=== PATIENT | female | born 1975 ===

== ENCOUNTER 2017-12-02 16:55 | Emergency (ER) | payer OTHER, SELFPAY ==
[2017-12-02 17:23] VITALS: BP 132/77; PULSE 88; RESP 20; TEMP 98.6; O2SAT 97; BMI 56.0
[2017-12-02] MEDS ORDERED: Dexamethasone 4 mg/1 ml IM STA (17:39)
--- NOTE | 2017-12-02 17:39 | C.PDOC ---
History Of Present Illness <Kaity Cochran - Last Filed: 12/02/17 17:50> <Kang Bocanegra DO - Last Filed: 12/02/17 18:33> HPI: 42 year old female with past medical history of HTN who presents to [facility] for an allergic reaction. Patient states she took 2 new medications today Diclofenac and Promethazine at 2:30pm. Then around 4:30pm she woke up from a nap and she had itching all over her body, swelling in her hands and she felt like she couldn't breathe so she decided to come to the ER. She states this once happened 2 years ago but does not recall what the medication was. Currently she denies shortness of breath, itching, nausea, vomiting or fever. PMD: Dr. Walls Past Medical History: HTN Past Surgical History: Medications: Lisinopril 5mg daily (Kaity Cochran) <Kaity Cochran - Last Filed: 12/02/17 17:50> <Kang Bocanegra DO - Last Filed: 12/02/17 18:33> Chief Complaint (Nursing): Allergic Reaction Past Medical History - Medical History PMH: HTN Family History: States: No Known Family Hx - Social History Hx Tobacco Use: No Hx Alcohol Use: No Hx Substance Use: No - Immunization History Hx Tetanus Toxoid Vaccination: Yes Hx Influenza Vaccination: No Hx Pneumococcal Vaccination: No <Kaity Cochran - Last Filed: 12/02/17 17:50> Vital Signs: Last Vital Signs Temp 98.6 F 12/02/17 17:23 Pulse 88 12/02/17 17:23 Resp 20 12/02/17 17:23 BP 132/77 12/02/17 17:23 Pulse Ox 97 12/02/17 17:59 Review Of Systems Constitutional: Negative for: Fever, Chills Cardiovascular: Negative for: Chest Pain Respiratory: Negative for: Cough, Shortness of Breath, Wheezing Gastrointestinal: Negative for: Nausea, Vomiting Skin: Positive for: Rash <Kaity Cochran - Last Filed: 12/02/17 17:50> Physical Exam - Physical Exam Appears: Non-toxic, No Acute Distress Skin: Rash (petechiae seen on the dorsal trunk, chest, and face) Head: Atraumatic, Normacephalic Eye(s): bilateral: Normal Inspection, PERRL, EOMI Oral Mucosa: Moist Cardiovascular: Rhythm Regular Respiratory: Normal Breath Sounds, No Decreased Breath Sounds, No Accessory Muscle Use, No Rales, No Rhonchi, No Stridor, No Wheezing Gastrointestinal/Abdominal: Normal Exam, Bowel Sounds (normal), Soft, No Tenderness Extremity: Swelling (bilateral hand swelling) Neurological/Psych: Oriented x3, Normal Speech, Normal Cognition <Kaity Cochran - Last Filed: 12/02/17 17:50> ED Course And Treatment O2 Sat by Pulse Oximetry: 97 <Kaity Cochran - Last Filed: 12/02/17 17:50> Medical Decision Making <Kaity Cochran - Last Filed: 12/02/17 17:50> <Kang Bocanegra DO - Last Filed: 12/02/17 18:33> Medical Decision Making: Allergic reaction secondary to one of the new medications Diclofenac and/or Promethazine - Decadron 10mg IM once (Kaity Cochran) Disposition Discussed With Dr.: Kang Bocanegra DO Doctor Will See Patient In The: ED - Disposition Disposition Time: 17:58 <Kaity Cochran - Last Filed: 12/02/17 17:50> - Disposition Disposition Time: 17:40 <Kang Bocanegra DO - Last Filed: 12/02/17 18:33> - Disposition Referrals: Sara Virgen, [Non-Staff] - Disposition: HOME/ ROUTINE Condition: GOOD Additional Instructions: Thank you for letting us take care of you today. The emergency medical care you received today was directed at your acute symptoms. If you were prescribed any medication, please fill it and take as directed. It may take several days for your symptoms to resolve. Return to the Emergency Department if your symptoms worsen, do not improve, or if you have any other problems. Please contact your doctor or call one of the physicians/clinics you have been referred to that are listed on the Patient Visit Information form that is included in your discharge packet. Bring any paperwork you were given at discharge with you along with any medications you are taking to your follow up visit. Our treatment cannot replace ongoing medical care by a primary care provider (PCP) outside of the emergency department. Thank you for allowing the [facility] team to be part of your care today. STOP TAKING THE NEW MEDICATION YOU STARTED TODAY. Follow up with your primary care doctor in 1-2 days for re-evaluation and further management. Prescriptions: predniSONE [Prednisone] 40 mg PO DAILY #10 tab Instructions: Drug Allergy Forms: [employer] (Ivorian) - Clinical Impression Clinical Impression: Allergy - PA / [employer] REP / Resident Statement MD/ has reviewed & agrees with the documentation as recorded. /DO has examined the patient and agrees with the treatment plan. <Kaity Cochran - Last Filed: 12/02/17 17:50>
== END 2017-12-02 18:01 | disposition home or self-care (01) ==
LOC: C.ER 16:55
DX: M79.89 Other specified soft tissue disorders (principal); T50.995A Adverse effect of other drugs, medicaments and biological substances, initial encounter; I10 Essential (primary) hypertension
CPT/HCPCS: 96372; 99284; J1100

== ENCOUNTER 2017-12-10 17:06 | Emergency (ER) | payer OTHER ==
[2017-12-10 17:12] VITALS: BMI 57.4
[2017-12-10] MEDS ORDERED: Sodium Chloride 0.9% 1,000 ML IV STA (17:28)
[2017-12-10] MEDS ORDERED: DiphenhydrAMINE 50 mg/ml Inj IVP STA (17:28)
[2017-12-10] MEDS ORDERED: DiphenhydrAMINE 50 mg/ml Inj ONE (17:31)
[2017-12-10] MEDS ORDERED: Sodium Chloride 0.9% 1,000 ML ONE (17:31)
--- NOTE | 2017-12-10 18:15 | C.PDOC ---
History Of Present Illness <Chyna Shetty - Last Filed: 12/10/17 18:54> <Ally Howard - Last Filed: 12/10/17 18:59> <Ainsley Aponte - Last Filed: 12/10/17 20:34> 42 y/o female presents to ED with complaints of allergic reaction developed 30 minutes after taking Voltaren for back pain today. Patient states she was seen 1 week ago for similar symptoms but not as severe, was told to stop cold medication for possible allergic reaction. Patient states she stopped cold medication and today developed same symptoms but worse with associated tongue swelling and voice change which prompted visit to ED. Patient denies fever, chills, sob, wheezing, chest pain or any other complaints at this time. (Ally Howard) <Chyna Shetty - Last Filed: 12/10/17 18:54> History Per: Patient History/Exam Limitations: no limitations Onset/Duration Of Symptoms: Hrs Current Symptoms Are (Timing): Still Present Possible Cause: Medication Associated Symptoms: Skin Rash, Swelling <Ally Howard - Last Filed: 12/10/17 18:59> <Ainsley Aponte - Last Filed: 12/10/17 20:34> Time Seen by Provider: 12/10/17 17:18 Chief Complaint (Nursing): Allergic Reaction Past Medical History Reviewed: Historical Data, Nursing Documentation, Vital Signs - Medical History PMH: HTN Surgical History: No Surg Hx Family History: States: No Known Family Hx - Social History Hx Tobacco Use: No Hx Alcohol Use: No Hx Substance Use: No - Immunization History Hx Tetanus Toxoid Vaccination: Yes Hx Influenza Vaccination: No Hx Pneumococcal Vaccination: No <Ally Howard - Last Filed: 12/10/17 18:59> Vital Signs: Last Vital Signs Temp 98.3 F 12/10/17 17:12 Pulse 110 H 12/10/17 17:12 Resp 20 12/10/17 17:12 BP 137/85 12/10/17 17:12 Pulse Ox 96 12/10/17 19:07 Review Of Systems Constitutional: Negative for: Fever, Chills Cardiovascular: Negative for: Chest Pain Respiratory: Negative for: Shortness of Breath Gastrointestinal: Negative for: Nausea, Vomiting Skin: Positive for: Rash <Ally Howard - Last Filed: 12/10/17 18:59> Physical Exam - Physical Exam Appears: Non-toxic, No Acute Distress Skin: Warm, Dry, Rash (Urticaria erythematous rash to face and chest. ) Head: Atraumatic, Normacephalic Eye(s): bilateral: Normal Inspection Oral Mucosa: Moist Tongue: Normal Appearing, No Swelling Lips: Normal Appearing, No Swelling Throat: Normal, No Erythema, No Exudate, No Drooling Neck: Normal ROM, Supple Cardiovascular: Rhythm Regular Respiratory: Normal Breath Sounds, No Rales, No Rhonchi, No Wheezing Gastrointestinal/Abdominal: Soft, No Tenderness, No Guarding, No Rebound Extremity: Normal ROM, Capillary Refill (<2 seconds) Neurological/Psych: Oriented x3, Normal Speech <Ally Howard - Last Filed: 12/10/17 18:59> ED Course And Treatment O2 Sat by Pulse Oximetry: 96 (RA) Pulse Ox Interpretation: Normal Progress Note: IVF, Benadryl and Solu-Medrol IV administered. On re-evaluation patient feels better, but still has swollen lips and mouth. Patient is being observed in ED. Case was signed out to at 7 pm. <Ally Howard - Last Filed: 12/10/17 18:59> - Laboratory Results Result Diagrams: 12/10/17 19:12 12/10/17 19:12 <Ainsley Aponte - Last Filed: 12/10/17 20:34> Supervising Attending Note - Supervising Attending Note The Documented history was done by the: Physician Sugar Coating Hand The documented physical exam was done by the: Physician Sugar Coating Hand The documented procedures were done by the: Physician Sugar Coating Hand EM CAVEAT: Language Barrier - Attestation: I have personally seen and examined this patient.: Yes I have fully participated in the care of the patient.: Yes I have reviewed all pertinent clinical information: Yes <Chyna Shetty - Last Filed: 12/10/17 18:54> <Ally Howard - Last Filed: 12/10/17 18:59> <Ainsley Aponte - Last Filed: 12/10/17 20:34> - Notes: Notes:: WORSENING LIP SWELLING, REDNESS X 1 WEEK. SEEN LAST WEEK FOR SAME, ADVISED TO DC COUGH MEDICINE. CONTINUED ON CURRENT HTN MED AND DICLOFENAC, FELT PERSIST B/ L FEET ITCH BUT NOW W NEW ONSET REDNESS, LIP SWELLING. NO WHEEZE, DENIES HO ASTHMA. EXAM ABOVE (Chyna Shetty) Progress - Critical Care Citical Care: Excluding Proc Time Critical Care Time: 90 minutes <Chyna Shetty - Last Filed: 12/10/17 18:54> <Ally Howard - Last Filed: 12/10/17 18:59> <Ainsley Aponte - Last Filed: 12/10/17 20:34> - Re-Evaluation Re-evaluation Note: 12/10/17 18:53 VIA TRANS PT NOW STATES TAKE ENALAPRIL. PER TRIAGE, PT DID NOT REPORT THIS MEDICATION DURING INITIAL EVAL. SP SOLUMEDROL, BENADRYL, IVF X 1 HR. HIVES, ITCH RESOLVED. STILL CO PERSIST LIP SWELLING, "FUNNY FEELING" WHEN SWALLOWING. NARD VSS. TONGUE NO ANGIOEDEMA; LIP ANGIOEDEMA; NO DROOL, STRIDOR; NO GROSS VOCAL ABN. (Chyna Shetty) Disposition <Chyna Shetty - Last Filed: 12/10/17 18:54> - Disposition Disposition Time: 19:07 <Ally Howard - Last Filed: 12/10/17 18:59> <Ainsley Aponte - Last Filed: 12/10/17 20:34> - Disposition Condition: FAIR Forms: [employer] (Estonian) - Clinical Impression Clinical Impression: Allergy <Chyna Shetty - Last Filed: 12/10/17 18:54> - PA / PSYCHIATRIC AIDE INSTRUCTOR / Resident Statement MD/DO has reviewed & agrees with the documentation as recorded. - Scribe Statement The provider has reviewed the documentation as recorded by the Scribe <Ally Howard - Last Filed: 12/10/17 18:59> <Ainsley Aponte - Last Filed: 12/10/17 20:34> - Scribe Statement Anay Menchaca All medical record entries made by the Scribe were at my direction and personally dictated by me. I have reviewed the chart and agree that the record accurately reflects my personal performance of the history, physical exam, medical decision making, and the department course for this patient. I have also personally directed, reviewed, and agree with the discharge instructions and disposition. (Ally Howard) Addendum <Ally Howard - Last Filed: 12/10/17 18:59> <Ainsley Aponte - Last Filed: 12/10/17 20:34> Addendum: 12/10/17 20:30 Patient resting comfortably, states she feels much better and would like to be discharged home. On exam, she has trace lipo swelling, no tongue swelling, no drooling/stridor, lungs are CTA B/L without wheezing or accessory muscle use. She admits to being on DELON inhibitor, however states symptoms started after starting Diclofenac on 12/01. She was seen previously for similar symptoms in our ER after initially starting med. For the last 2-3 days she has felt itchy, and then today after med her lips became swollen. Patient significantly improved, will discharge home with prednisone and benadryl. She was instructed to stop taking medication, and to follow up with PMD Dr. Walls in 1-2 days. She understands she should return to ED if symptoms return/worsen. (Ainsley Aponte)
[2017-12-10 19:20] LABS: BASO % 0.3 % (0.0-2.0); EOS # 0.1 K/uL (0.0-0.7); EOS % 1.1 % (0.0-4.0); HEMOGLOBIN 13.3 g/dL (11.0-16.0); LYMPH # 5.2 K/uL (1.0-4.3); LYMPH % 40.5 % (20.0-40.0); MEAN CORPUSCULAR HEMOGLOBIN 24.4 pg (27.0-31.0); MEAN PLATELET VOLUME 8.7 fL (7.2-11.7); MONO # 0.6 K/uL (0.0-0.8); MONO % 4.7 % (0.0-10.0); NEUT # 6.8 K/uL (1.8-7.0); NEUT % 53.4 % (50.0-75.0); RBC 5.45 Mil/uL (3.80-5.20); RED CELL DISTRIBUTION WIDTH 16.7 % (11.5-14.5); WHITE BLOOD COUNT 12.8 K/uL (4.8-10.8)
[2017-12-10 19:22] LABS: MEAN CELL VOLUME 76.4 fL (81.0-99.0)
[2017-12-10 19:27] LABS: ALB/GLOB RATIO 1.1 (1.0-2.1); ALBUMIN 3.9 g/dL (3.5-5.0); ALT/SGPT 52 U/L (9-52); AST/SGOT 39 U/L (14-36); BLOOD UREA NITROGEN 21 mg/dL (7-17); CALCIUM 9.7 mg/dl (8.6-10.4); GFR AFRICAN-AMERICAN > 60; GFR NON-AFRICAN AMERICAN > 60
[2017-12-10 20:41] VITALS: BP 126/86; PULSE 89; RESP 16; TEMP 98; O2SAT 98
== END 2017-12-10 20:41 | disposition home or self-care (01) ==
LOC: C.ER 17:06
DX: T78.49XA Other allergy, initial encounter (principal); X58.XXXA Exposure to other specified factors, initial encounter
CPT/HCPCS: 80053; 85025; 96374; 96375; 99284; J1200; J2930; J7040

== ENCOUNTER 2018-12-15 16:12 | Outpatient (CLI) | payer SELFPAY | END 2018-12-15 16:13 | disposition home or self-care (01) | LOC: C.CTH 16:12 | DX: R10.2 Pelvic and perineal pain (principal) ==

== ENCOUNTER 2019-01-17 16:07 | Emergency (ER) | payer OTHER, SELFPAY ==
[2019-01-17 16:07] VITALS: BMI 57.4
[2019-01-17 16:17] VITALS: TEMP 97.9
[2019-01-17] MEDS ORDERED: Aspirin 325 mg EC Tablets PO STA (17:36)
--- NOTE | 2019-01-17 17:36 | C.PDOC ---
History Of Present Illness NEW ONSET CP X 3 EPISODES, LAST @ 1200. FIRST 2 WKS AGO, RESOLVED. RECUR 4/5 THEN RESOLVED. RECUR TODAY @ 1200 ONSET DURING ROUTINE ACTIVITY. L SIDED, RADIATION L ARM. +SOB, DIZZY. SIM TO PRIOR EPISODES. CURRENTLY LUE DISCOMFORT IMPROVED FROM INITIAL. HO DM, HTN. DENIES SMOKING. PS COMPLIANT W MEDS BUT DID NOT TAKE DOSE TODAY EXAM NONTOXIC OBESE LUNGS CTA BL NO W/R/R CV RRR HR 65 REMAINDER NEG Time Seen by Provider: 01/17/19 16:53 Chief Complaint (Nursing): Chest Pain History Per: Patient History/Exam Limitations: no limitations Onset/Duration Of Symptoms: Days Current Symptoms Are (Timing): Still Present Severity: Moderate Past Medical History Reviewed: Historical Data, Nursing Documentation, Vital Signs Vital Signs: Last Vital Signs Temp 97.9 F 01/17/19 16:13 Pulse 76 01/17/19 16:13 Resp 18 01/17/19 16:13 BP 197/94 H 01/17/19 16:13 Pulse Ox 99 01/17/19 16:13 - Medical History PMH: HTN Surgical History: Family History: States: No Known Family Hx - Social History Hx Tobacco Use: No Hx Alcohol Use: No Hx Substance Use: No - Immunization History Hx Tetanus Toxoid Vaccination: Yes Hx Influenza Vaccination: Yes Hx Pneumococcal Vaccination: No Review Of Systems Except As Marked, All Systems Reviewed And Found Negative. Constitutional: Negative for: Fever, Chills Cardiovascular: Positive for: Chest Pain Respiratory: Positive for: Shortness of Breath Neurological: Positive for: Dizziness Physical Exam - Physical Exam Appears: Non-toxic, Other (obese) Skin: Normal Color, Warm, Dry Head: Atraumatic, Normacephalic Eye(s): bilateral: Normal Inspection Neck: Supple Chest: Symmetrical Cardiovascular: Rhythm Regular (RRR HR 65) Respiratory: Normal Breath Sounds, No Rales, No Rhonchi, No Wheezing Gastrointestinal/Abdominal: Normal Exam, Soft, No Tenderness, No Guarding, No Rebound Neurological/Psych: Oriented x3, Normal Speech ED Course And Treatment - Laboratory Results Result Diagrams: 01/17/19 17:49 01/17/19 17:49 ECG: Interpreted By Wv ECG Rhythm: Sinus Rhythm ECG Interpretation: Normal Rate From EC O2 Sat by Pulse Oximetry: 99 (RA) Pulse Ox Interpretation: Normal - Radiology CXR: Interpreted by Me, Viewed By Me CXR Interpretation: Yes: No Acute Disease Progress - Re-Evaluation Re-evaluation Note: 01/17/19 17:43 PS PREV TOLERATING ASPIRIN WO DIFF. PT AND FAMILY ADVISED HAS MULTIPLE RISK FACTORS FOR CARDIAC DISEASE, NO PRIOR CARDIAC EVALUATION OR TESTING. FURTHER MANAGEMENT WILL REQUIRE ADMISSION. AGREE W PLAN 01/17/19 18:31 D/W DR MOORE WILL ADMIT 01/17/19 18:37 PT NOW STATES DOES NOT WANT ADMISSION. The patient declines admission to the hospital and wishes to leave the Emergency Department. This action is against my medical advice. This decision was made with informed refusal. The patient was told that admission to the hospital is necessary. Explanation of the reasons why were discussed. The risks of leaving were explained to the patient and include, but are not limited to, worsening of known or currently unknown conditions, permanent disability and from undiagnosed or untreated conditions. The patient has the capacity to make this informed decision and understands my explanation of the current medical problem and risks of leaving. The patient voluntarily accepts these risks and signed an AMA form documenting our conversation. The patient was given the opportunity to ask questions and reconsider. The patient was encouraged to return to the Emergency Department at any time for further care. - Data Reviewed Data Reviewed: Lab, Diagnostic imaging, EKG, Old records Medical Decision Making Medical Decision Making: Plan: --Labs --EKG --CXR --Aspirin PO --Nitro PO Disposition Counseled Patient/Family Regarding: Studies Performed, Diagnosis, Need For Followup - Disposition Referrals: YOUR,PMD [Other] Disposition: AGAINST MEDICAL ADVICE Disposition Time: 18:31 Condition: STABLE Additional Instructions: USTED GRANT SIDO INFORMADO DE LA NECESIDAD DE PRUEBAS ADICIONALES DE CARDENAS CONDICIN MDICA DE EMERGENCIA. DAVEY SIDO ADVERTIDOS LOS RIESGOS DE ABANDONAR, INCLUIDAS LA DISCAPACIDAD, EL DETERIORO Y LA MUERTE. USTED GRANT INDICADO LA COMPRENSIN VERBAL Y DESEA PROCEDER A ABANDONARSE CONTRA EL ASESORAMIENTO MDICO. SIGUE CON TU PMD CUANTO ANTES. REGRESE SI EMPEORAN LOS SNTOMAS. Instructions: Chest Pain (DC), Leaving Against Medical Advice Forms: [employer] (Turkish) Print Language: SLOVENIAN - POA Present On Arrival: None - Clinical Impression Clinical Impression: Chest pain - Scribe Statement The provider has reviewed the documentation as recorded by the Scribe Jeremi Solis Provider Attestation: All medical record entries made by the Scribe were at my direction and personally dictated by me. I have reviewed the chart and agree that the record accurately reflects my personal performance of the history, physical exam, m edical decision making, and the department course for this patient. I have also personally directed, reviewed, and agree with the discharge instructions and disposition.
[2019-01-17 17:53] LABS: BASO % 0.5 % (0.0-2.0); EOS # 0.2 K/uL (0.0-0.7); EOS % 2.3 % (0.0-4.0); HEMOGLOBIN 12.3 g/dL (11.0-16.0); LYMPH # 2.4 K/uL (1.0-4.3); LYMPH % 26.1 % (20.0-40.0); MEAN PLATELET VOLUME 8.7 fL (7.2-11.7); MONO # 0.4 K/uL (0.0-0.8); MONO % 4.8 % (0.0-10.0); NEUT # 6.1 K/uL (1.8-7.0); NEUT % 66.3 % (50.0-75.0); NRBC % 0.1 % (0.0-2.0); RBC 4.93 Mil/uL (3.80-5.20); RED CELL DISTRIBUTION WIDTH 17.3 % (11.5-14.5); WHITE BLOOD COUNT 9.2 K/uL (4.8-10.8)
--- NOTE | 2019-01-17 18:03 | RAD ---
HISTORY: chest pain COMPARISON: None available. TECHNIQUE: Chest PA and lateral, 2 views FINDINGS: Examination limited by habitus. LUNGS: No focal consolidation. Please note that chest x-ray has limited sensitivity for the detection of pulmonary masses. PLEURA: No significant pleural effusion identified. No definite pneumothorax . CARDIOVASCULAR: Heart size appears top normal. No atherosclerotic calcification present. OSSEOUS STRUCTURES: No acute osseous abnormality identified. VISUALIZED UPPER ABDOMEN: Unremarkable. OTHER FINDINGS: None. IMPRESSION: No focal consolidation.
[2019-01-17 18:13] LABS: BLOOD UREA NITROGEN 13 mg/dL (7-17); CALCIUM 10.1 mg/dl (8.6-10.4); GFR NON-AFRICAN AMERICAN > 60
[2019-01-17 18:25] LABS: ALB/GLOB RATIO 1.3 (1.0-2.1); ALBUMIN 4.4 g/dL (3.5-5.0); ALT/SGPT 9 U/L (9-52); AST/SGOT 46 U/L (14-36)
[2019-01-17 18:53] VITALS: BP 110/68; PULSE 72; RESP 20; O2SAT 100
--- NOTE | 2019-01-18 16:34 | CARD ---
APPROVED REPORT Date of service: 01/17/2019 EKG Measurement Heart [id number] <Conclusion> Normal sinus rhythm Poor R wave progression - Appears positional Borderline ECG
== END 2019-01-17 18:51 | disposition left against medical advice (07) ==
LOC: C.ER 16:07 → UNDOADMOB 18:32 → C.6T 18:32 → C.9E 19:07 → C.6T 19:07
DX: R07.9 Chest pain, unspecified (principal); I10 Essential (primary) hypertension